=== PATIENT | male | born 1950 | race Caucasian/White ===

== ENCOUNTER → 2024-05-24 | Outpatient (REF) | payer OTHER, SELFPAY ==
[2024-05-24 07:38] LABS: Hematocrit 39.2 % (40-54); Hemoglobin 13.7 g/dL (13.0-16.5); Mean Corp Hgb Conc 34.9 g/dL (32-36); Mean Corpuscular Hgb 29.2 pg (27.0-32.0); Mean Corpuscular Volume 83.6 fL (80-94); Mean Platelet Vol. 10.2 fl (6.2-12.0); Platelet Count 109 K/mm3 (150-450); RBC Distribution Width CV 14.9 % (11.6-14.6); RBC Distribution Width SD 44.8 fl (35.1-43.9); Red Blood Count 4.69 M/mm3 (4.6-6.2)
[2024-05-24 08:13] LABS: Magnesium 1.9 mg/dL (1.5-2.2)
[2024-05-24 08:15] LABS: Anion Gap 14 (5-15); BUN 40 mg/dL (4-19); BUN/Creat Ratio 29.1 RATIO (10-20); Calcium,Total 8.8 mg/dL (7.6-11.0); Carbon Dioxide 22.1 mmol/L (21.0-32.0); Chloride 100 mmol/L (98-108); Creatinine, Serum 1.39 mg/dL (0.70-1.20); EST Glomerular Filtration Rate 54 (>60); Glucose 263 mg/dL (70-99); Potassium 4.3 mmol/L (3.3-5.1); Sodium Level 136 mmol/L (133-145)
== END ==
LOC: OLS.SW 05:00
PROVIDERS: Visit Provider Internal Medicine
DX: E11.9 Type 2 diabetes mellitus without complications (principal); I10 Essential (primary) hypertension
CPT/HCPCS: 36415; 80048; 83735; 85027

== ENCOUNTER → 2024-06-01 | Outpatient (REF) | payer OTHER, SELFPAY ==
[2024-06-01 11:21] LABS: Hematocrit 40.1 % (40-54); Hemoglobin 13.3 g/dL (13.0-16.5); Mean Corp Hgb Conc 33.2 g/dL (32-36); Mean Corpuscular Hgb 28.7 pg (27.0-32.0); Mean Corpuscular Volume 86.4 fL (80-94); Mean Platelet Vol. 10.8 fl (6.2-12.0); POSITIVE COUNT YES; Platelet Count 64 K/mm3 (150-450); RBC Distribution Width CV 15.3 % (11.6-14.6); RBC Distribution Width SD 48.1 fl (35.1-43.9); Red Blood Count 4.64 M/mm3 (4.6-6.2); White Blood Count 6.8 K/mm3 (4.4-11.0)
[2024-06-01 12:46] LABS: Anion Gap 19 (5-15); BUN 39 mg/dL (4-19); BUN/Creat Ratio 27.8 RATIO (10-20); Calcium,Total 8.6 mg/dL (7.6-11.0); Carbon Dioxide 13.3 mmol/L (21.0-32.0); Chloride 106 mmol/L (98-108); Creatinine, Serum 1.39 mg/dL (0.70-1.20); EST Glomerular Filtration Rate 54 (>60); Glucose 249 mg/dL (70-99); Potassium 4.4 mmol/L (3.3-5.1); Sodium Level 138 mmol/L (133-145)
== END ==
LOC: OLS.SW 11:13
PROVIDERS: Visit Provider Internal Medicine
DX: R05.9 Cough, unspecified (principal); M79.89 Other specified soft tissue disorders
CPT/HCPCS: 80048; 85027

== ENCOUNTER → 2024-06-07 06:00 | Outpatient (REF) | payer OTHER, SELFPAY ==
[2024-06-07 07:56] LABS: Anion Gap 15 (5-15); BUN 32 mg/dL (4-19); BUN/Creat Ratio 30.1 RATIO (10-20); Calcium,Total 8.1 mg/dL (7.6-11.0); Carbon Dioxide 17.4 mmol/L (21.0-32.0); Chloride 103 mmol/L (98-108); Creatinine, Serum 1.07 mg/dL (0.70-1.20); EST Glomerular Filtration Rate 74 (>60); Glucose 214 mg/dL (70-99); Potassium 4.1 mmol/L (3.3-5.1); Sodium Level 136 mmol/L (133-145)
== END ==
LOC: OLS.SW 06:00
PROVIDERS: Visit Provider Internal Medicine
DX: N17.9 Acute kidney failure, unspecified (principal)
CPT/HCPCS: 36415; 80048